=== PATIENT | female | born 1950 | race Caucasian/White ===

== ENCOUNTER → 2017-01-29 | Outpatient (CLI) | payer MEDICARE, OTHER ==
[~2017-01-29] MED LIST: DESYREL GENERIC50 MG PO; IBUPROFEN800 MG PO; LEVOTHYROXIN0.125 M1 PO; MONTELUKAST SOD10 MG PO; NEURONTIN 300M300 MG PO; PROTONIX40 MG PO; SINEMET 25/1001 TAB PO; TOBRADEX 0.1% OP; ZANAFLEX4 MG PO
--- NOTE | 2017-02-01 08:26 | RADIOLOGY REPORT PS360 ---
MRI-LOW EXT ANY JOINT W/O-LT HISTORY: Left hip and groin pain with limited range of motion, pain when walking LEFT HIP PAIN ORDERING PHYSICIAN: GILLIAN MORGAN PATIENT AGE: 66 years COMPARISON: None TECHNIQUE: Standard multiplanar multiecho sequences are performed without contrast. FINDINGS: No destructive process evident. No evidence of fracture or avascular necrosis. There is slight decrease in the hip joint space superiorly. No significant effusion. There is slight increased T2 signal involving the tissues lateral to the greater trochanter at the gluteus medius insertion which may be seen with greater trochanteric bursitis. Please correlate with clinical findings. No other abnormal signal intensity apparent. There is a small area of increased T2 signal involving the right ilium inferiorly at 8 mm nonspecific. IMPRESSION: 1. Very slight decrease in the hip joint space superiorly which may be seen with early osteoarthritis. 2. Increased T2 signal along the greater trochanter on the left suggesting trochanteric bursitis.
== END ==
LOC: RAD 09:12
DX: M25.552 Pain in left hip (principal)

== ENCOUNTER → 2017-09-08 | Outpatient (CLI) | payer MEDICARE, OTHER ==
--- NOTE | 2017-09-21 13:15 | RADIOLOGY REPORT PS360 ---
CT CHEST W/O CONTRAST Ordering Physician: JEANETTE MANRIQUEZ MD Patient Age: 67 years: Female HISTORY: PULOMONARY NODULEpulmonary nodule follow-up TECHNIQUE: Helical CT scanning performed the chest. No IV contrast. COMPARISON :Prior LDCT chest 04/29/2017 FINDINGS: . No large nor highly suspicious pulmonary lesion or mass is evident... LUNG RADS Category 3/ -4A We again see the irregular nodular density RUL,,-at right midlung superior to the major fissure. Axial slice 36. 7.7 mm AP x 4.2. Mm transverse.. When I go back and measure from the same points this appears to be a similar, stable AP dimension. Although Slightly more generous transverse dimension on measurements, this may be due to the level of the CT section as it does not appear to any larger on the sagittal or coronal reconstruction images from today.. Nonetheless with a slightly irregular margins of warrants close follow-up.. Repeat CT chest 4-6 months & consider pulmonary consult. . Lung rad category 2: Stable Wispy density most likely reflecting scarring axial image 47 anteriorly right midlung. 7 mm. Axial image 45 appears unchanged again be followed.. Benign nodules(Category1) also noted Calcified granulomas bilaterally at lung bases. Roughly 6 mm calcified granuloma at the anterior right lung base and posterior left lung base.. LUNG PARENCHYMA Emphysema: Moderate centrilobular emphysematous changes are clearly evident. Airways disease: Borderline thickening of central airways... Subtle coarsening of interstitium but no significant or prominent interstitial fibrosis overall . There is minimal linear scarring again seen at the medial RML & medial lingula. Similar to previous studies. OTHER ANATOMIC REGIONS Lymph Nodes: Calcified granulomatous lymph nodes seen towards right and left chencho. No suspicious pathological nodes.. No enlarged lymph nodes mediastinal nor hilar evident... Calcified aorta arch Pleura: Unremarkable chest wall. No significant findings. Cardiac: Heart normal size. Coronary artery calcification and possible stents again noted. Uppermost abdomen. Adrenals normal. Limited images here otherwise IMPRESSION: 1. COPD. Moderately pronounced centrilobular emphysematous changes bilateral 2. Lung RADS Category: 3 to 4A . small irregular density RUL/ right midlung Again seen. No definitive interval change overall Appears similar 7.7 mm, AP dimension. Although initially Question slightly more generous transverse 4.2 mm dimension, but on final review of all images in all planes, favor this appearance due to this level of axial section and overall most likely stable density.. However it warrants close follow up technique given its irregular margin.. .. Suggest Follow-up CT chest in 4-6 months recommended. Consider pulmonary consult. 3. Other small benign features appear stable history wispy density anterior R UL most likely related to scarring
== END ==
LOC: RAD 13:00
DX: R91.1 Solitary pulmonary nodule (principal)